=== PATIENT | male | born 1965 | race Hispanic/Latino ===

== ENCOUNTER → 2018-02-16 | Outpatient (CLI) | payer OTHER | END | disposition home or self-care (01) | LOC: RAH 14:22 | PROVIDERS: ATTEND Physician Assistant Medical | DX: M54.5 Low back pain (principal); M25.552 Pain in left hip | CPT/HCPCS: 72100; 73502 ==

== ENCOUNTER → 2019-04-13 | Outpatient (CLI) | payer OTHER | END | disposition home or self-care (01) | LOC: RAH 09:14 | PROVIDERS: ATTEND Internal Medicine Critical Care Medicine | DX: S46.912A Strain of unspecified muscle, fascia and tendon at shoulder and upper arm level, left arm, initial encounter (principal); M19.012 Primary osteoarthritis, left shoulder; X58.XXXA Exposure to other specified factors, initial encounter; Y93.89 Activity, other specified; Y92.89 Other specified places as the place of occurrence of the external cause; Y99.8 Other external cause status | CPT/HCPCS: 73221 ==

== ENCOUNTER → 2021-04-23 | Outpatient (CLI) | payer OTHER | END | disposition home or self-care (01) | LOC: CANPRECLI → RAH 09:47 | PROVIDERS: ATTEND Internal Medicine Critical Care Medicine | DX: I10 Essential (primary) hypertension (principal) | CPT/HCPCS: 76770; 93975 ==